=== PATIENT | male | born 1965 | race Caucasian/White ===

== ENCOUNTER 2022-08-05 22:46 | Emergency (ER) | payer SELFPAY ==
[~2022-08-05] VITALS: Ht 167.6 cm; Wt 82.6 kg
[2022-08-05 22:55] VITALS: BP 120/58
[2022-08-05] MEDS: IBUPROFEN 600 MG TAB PO ONE (23:22)
--- NOTE | 2022-08-06 00:14 | NUR ---
Dr. Matson examining patient.
[2022-08-06] MEDS ORDERED: BACITRACIN OINT 500 UNITS/GM PKT TP ONE (00:18)
[2022-08-06] MEDS ORDERED: NAPR-54 PO (00:24)
[2022-08-06] MEDS: KETOROLAC 60 MG/2 ML VIAL IM ONE (00:24)
[2022-08-06] MEDS: BACITRACIN OINT 500 UNITS/GM PKT TP ONE (00:28)
[2022-08-06 00:32] VITALS: BP 125/58
== END 2022-08-06 00:32 | disposition home or self-care (01) ==
LOC: EDBD 22:46 → MED 22:46
DX: S23.41XA Sprain of ribs, initial encounter (principal); S50.01XA Contusion of right elbow, initial encounter; S50.02XA Contusion of left elbow, initial encounter; I10 Essential (primary) hypertension; Z79.899 Other long term (current) drug therapy; Y04.2XXA Assault by strike against or bumped into by another person, initial encounter; Y93.89 Activity, other specified; Y92.89 Other specified places as the place of occurrence of the external cause; Y99.8 Other external cause status
CPT/HCPCS: 70100; 71101; 73070; 96372; 99284; J1885; Q0092; 99283